=== PATIENT | male | born 1985 ===

== ENCOUNTER 2017-03-17 12:03 | Emergency (ER) | payer OTHER ==
[2017-03-17] MEDS ORDERED: Emtricitabine-Tenofovir 200 mg-300 mg Tab PO STA ×2 (12:23→12:45)
[2017-03-17] MEDS ORDERED: Tetanus/Diphtheria Toxoids 0.5 ml Syringe IM ONE ×2 (12:26→13:21)
--- NOTE | 2017-03-17 12:32 | C.PDOC ---
History Of Present Illness Patient presents to ED s/p needle stick to right palm after drawing blood from patient in our hospital. Patient is a optical manufacturing technician, states he removed the butterfly after the blood draw, but patient was moving around a lot and the needle stuck him in his right hand. To his knowledge patient has no infectious diseases, however patient's nurse contacted and aware of needlestick, and will be notifying PMD in order to do HIV/hepatitis testing. Patient's tetanus vaccination status unknown. Time Seen by Provider: 03/17/17 12:09 Chief Complaint (Nursing): Needle Stick History Per: Patient History/Exam Limitations: no limitations Onset/Duration Of Symptoms: Mins Current Symptoms Are (Timing): Still Present Severity: Mild Past Medical History Reviewed: Historical Data, Nursing Documentation, Vital Signs Vital Signs: Last Vital Signs Temp 97.5 F L 03/17/17 14:21 Pulse 75 03/17/17 14:21 Resp 18 03/17/17 14:21 BP 130/85 03/17/17 14:21 Pulse Ox 100 03/17/17 14:21 - Medical History PMH: Asthma Surgical History: No Surg Hx Family History: States: No Known Family Hx Review Of Systems Except As Marked, All Systems Reviewed And Found Negative. Constitutional: Negative for: Fever, Chills Cardiovascular: Negative for: Chest Pain Respiratory: Negative for: Shortness of Breath Skin: Positive for: Other (right hand needlestick). Negative for: Rash Neurological: Negative for: Weakness, Numbness Physical Exam - Physical Exam Appears: Well, Non-toxic, No Acute Distress Skin: Other (right hand palmar aspect - small puncture wound at area of distal 3rd metacarpal, no erythema/discharge/bleeding ) Oral Mucosa: Moist Cardiovascular: Rhythm Regular Respiratory: No Normal Breath Sounds, No Rhonchi, No Wheezing Extremity: Normal ROM, No Tenderness, Capillary Refill (< 2 sec all digits ), No Deformity, No Swelling Extremity: Bilateral: Normal Color And Temperature, Normal ROM Pulses: Left Radial: Normal, Right Radial: Normal Neurological/Psych: Oriented x3, Normal Sensation ED Course And Treatment - Laboratory Results Result Diagrams: 03/17/17 12:54 03/17/17 12:54 O2 Sat by Pulse Oximetry: 99 (RA) Pulse Ox Interpretation: Normal Progress Note: Source patient chart reviewed, no evidence of infectious disease. Blood work, UA for PEP protocol ordered. Patient given first dose of Truvada & Tivicay in the ED, and Rxs for pharmacy to dispense/instruct for two more tabs. Patient instructed to follow up with employee health and ID in 1-2 days. He understands he should return to ED if he has any concerning symptoms. Disposition Counseled Patient/Family Regarding: Studies Performed, Diagnosis, Need For Followup, Rx Given - Disposition Referrals: [facility] [Outside] [facility] [Outside] Meena Welsh MD [Staff Provider] - Disposition: HOME/ ROUTINE Disposition Time: 13:00 Condition: STABLE Additional Instructions: FOLLOW UP WITH EMPLOYEE HEALTH AND WITH INFECTIOUS DISEASE IN 1-2 DAYS USE MEDICATIONS INSTRUCTED RETURN TO ER IF YOU HAVE ANY CONCERNING SYMPTOMS Prescriptions: Dolutegravir Sodium [Tivicay] 50 mg PO DAILY #2 tab Emtricitabine/Tenofovir (Tdf) [Truvada 200 mg-300 mg Tablet] 1 each PO DAILY #2 tablet Ondansetron [Zofran Odt] 4 mg PO Q8 PRN #12 odt PRN Reason: Nausea/Vomiting Instructions: Needle Stick Injuries (ED) Forms: [employer] (Occitan) Print Language: [place] - Clinical Impression Clinical Impression: Needle stick injury
[2017-03-17] MEDS ORDERED: Emtricitabine-Tenofovir 200 mg-300 mg Tab PO NR (12:45)
[2017-03-17 13:03] LABS: BASO # 0.1 K/uL (0.0-0.2); BASO % 0.8 % (0.0-2.0); EOS # 0.2 K/uL (0.0-0.7); EOS % 3.3 % (0.0-4.0); HEMATOCRIT 45.3 % (35.0-51.0); LYMPH # 1.6 K/uL (1.0-4.3); LYMPH % 23.5 % (20.0-40.0); MEAN CELL VOLUME 82.7 fL (80.0-94.0); MEAN CORPUSCULAR HEMOGLOBIN 28.7 pg (27.0-31.0); MEAN CORPUSCULAR HGB CONC 34.7 g/dL (33.0-37.0); MEAN PLATELET VOLUME 9.2 fL (7.2-11.7); MONO # 0.4 K/uL (0.0-0.8); MONO % 6.5 % (0.0-10.0); RED CELL DISTRIBUTION WIDTH 13.1 % (11.5-14.5); WHITE BLOOD COUNT 6.8 K/uL (4.8-10.8)
[2017-03-17 13:06] LABS: RBC URINE < 1 /hpf (0-3); URINE BILIRUBIN NEGATIVE (NEGATIVE); URINE BLOOD NEGATIVE (NEGATIVE); URINE COLOR Yellow (YELLOW); URINE GLUCOSE (UA) NORMAL (Normal); URINE KETONE 1+ mg/dL (NEGATIVE); URINE LEUKOCYTE ESTERASE NEG Leu/uL (Negative); URINE PROTEIN NEGATIVE (NEGATIVE); URINE UROBILINOGEN NORMAL mg/dL (0.2-1.0); WBC URINE 1 /hpf (0-5)
[2017-03-17 13:48] LABS: CHLORIDE 98 mmol/L (98-107); POTASSIUM 3.7 mmol/L (3.6-5.2); SODIUM 136 mmol/L (132-148)
[2017-03-17 13:50] LABS: ALB/GLOB RATIO 1.3 (1.0-2.1); AMYLASE 76 U/L (30-110); BILIRUBIN,TOTAL 0.7 mg/dL (0.2-1.3); CARBON DIOXIDE 26 mmol/L (22-30); GFR AFRICAN-AMERICAN > 60; TOTAL PROTEIN 8.2 g/dL (6.3-8.3)
[2017-03-17 13:51] LABS: ALKALINE PHOSPHATASE 82 U/L (38-126); ALT/SGPT 49 U/L (21-72); AST/SGOT 35 U/L (17-59); BLOOD UREA NITROGEN 11 mg/dL (9-20); CALCIUM 9.6 mg/dl (8.6-10.4); GLUCOSE,RANDOM 82 mg/dL (75-110)
[2017-03-17 14:21] VITALS: BP 130/85; PULSE 75; RESP 18; TEMP 97.5
[2017-03-19 09:28] VITALS: O2SAT 99
== END 2017-03-17 14:22 | disposition home or self-care (01) ==
LOC: C.ER 12:03
DX: S61.431A Puncture wound without foreign body of right hand, initial encounter (principal); W46.0XXA Contact with hypodermic needle, initial encounter; Y93.89 Activity, other specified; Y92.239 Unspecified place in hospital as the place of occurrence of the external cause; Y99.0 Civilian activity done for income or pay

== ENCOUNTER 2018-03-28 07:10 | Day surgery (SDC) | payer OTHER ==
[2018-03-28] MEDS ORDERED: Propofol 10 mg/ml Inj (20 ML) ONE (08:43)
[2018-03-28] MEDS ORDERED: Lidocaine Hydrochloride 5 ML INJ ONE (08:43)
--- NOTE | 2018-03-28 08:48 | CP.SDSHP ---
Same Day Surgery H & P - History Proposed Procedure: EGD with biopsy Pre-Op Diagnosis: dyspepsia/abdominal pain - Previous Medical/Surgical History Pulmonary: Asthma Previous Surgical History: nansal fracture - Allergies Allergies: Allergies No Known Allergies Allergy (Verified 03/17/17 12:29) - Current Medications Current Medications: reviewed, per reconciliation - Physical Exam General Appearance: wdwn nad Vital Signs: Vital Signs 03/28/18 07:29 Temperature 97.5 F L Pulse Rate 80 Respiratory 20 Rate Blood Pressure 129/95 H O2 Sat by Pulse 99 Oximetry Mental Status: Alert & Oriented x3 Heart: WNL Lungs: WNL GI: WNL - {Optional Preform as Required} Abdomen: WNL - Impression Impression: abdominal pain Pt. Evaluated Today:Candidate for Anesthesia & Procedure: Yes - Date & Time Date: 03/28/18 Time: 08:48 Short Stay Discharge - Short Stay Discharge Admitting Diagnosis/Reason for Visit: DYSPEPSIA Disposition: HOME/ ROUTINE
[2018-03-28 09:14] VITALS: TEMP 97.9
[2018-03-28 10:56] VITALS: O2SAT 100
[2018-03-28 11:09] VITALS: BP 118/77; PULSE 68; RESP 12
== END 2018-03-28 10:30 | disposition home or self-care (01) ==
LOC: C.ENDO 07:10
PROVIDERS: ATTEND Internal Medicine Gastroenterology
DX: K31.7 Polyp of stomach and duodenum (principal); J45.909 Unspecified asthma, uncomplicated; K25.9 Gastric ulcer, unspecified as acute or chronic, without hemorrhage or perforation; R10.13 Epigastric pain
CPT/HCPCS: 43239; 88305; 88342; J2704

== ENCOUNTER 2018-08-19 18:30 | Emergency (ER) | payer OTHER ==
[2018-08-19 18:33] VITALS: BMI 25.4
[2018-08-19 18:37] VITALS: O2SAT 97
[2018-08-19] MEDS ORDERED: Sodium Chloride 0.9% 1,000 ML IV ONE (18:54)
[2018-08-19] MEDS ORDERED: Sodium Chloride 0.9% 1,000 ML ONE (19:16)
[2018-08-19 19:39] LABS: BASO # 0.1 K/uL (0.0-0.2); BASO % 0.4 % (0.0-2.0); EOS # 0.3 K/uL (0.0-0.7); EOS % 1.9 % (0.0-4.0); HEMOGLOBIN 16.5 g/dL (12.0-18.0); LYMPH # 1.3 K/uL (1.0-4.3); MEAN CELL VOLUME 82.1 fL (80.0-94.0); MEAN CORPUSCULAR HEMOGLOBIN 27.7 pg (27.0-31.0); MEAN CORPUSCULAR HGB CONC 33.7 g/dL (33.0-37.0); MEAN PLATELET VOLUME 9.2 fL (7.2-11.7); MONO # 0.7 K/uL (0.0-0.8); MONO % 4.2 % (0.0-10.0); NEUT # 13.6 K/uL (1.8-7.0); NEUT % 85.5 % (50.0-75.0); PLATELET COUNT 258 K/uL (130-400); RBC 5.96 Mil/uL (4.40-5.90); WHITE BLOOD COUNT 15.9 K/uL (4.8-10.8)
[2018-08-19 19:52] LABS: ALB/GLOB RATIO 1.6 (1.0-2.1); ALBUMIN 4.9 g/dL (3.5-5.0); ALT/SGPT 27 U/L (21-72); AST/SGOT 25 U/L (17-59); BLOOD UREA NITROGEN 13 mg/dL (9-20); CALCIUM 9.6 mg/dl (8.6-10.4); GFR NON-AFRICAN AMERICAN > 60; LIPASE 196 U/L (23-300)
[2018-08-19] MEDS ORDERED: Iodixanol 320 mg/ml 150 ml Bottle IV ONE (20:01)
[2018-08-19 20:37] LABS: LYMPHOCYTE 10 % (20-40); MONOCYTE 2 % (0-10); NEUTROPHIL 88 % (50-75); TOTAL CELLS COUNTED 100
[2018-08-19 20:38] LABS: PLATELET ESTIMATE NORMAL (NORMAL)
--- NOTE | 2018-08-19 21:29 | C.PDOC ---
History Of Present Illness 32 year old male presents to the ED c/o abdominal pain associated with nausea, vomit and diarrhea since yesterday. Patient denies fever, chills, CP, SOB, palpitations, recent travel, sick contacts. Time Seen by Provider: 08/19/18 18:49 Chief Complaint (Nursing): Abdominal Pain History Per: Patient History/Exam Limitations: no limitations Onset/Duration Of Symptoms: Days (1) Current Symptoms Are (Timing): Still Present Location Of Pain/Discomfort: Diffuse Quality Of Discomfort: "Pain" Associated Symptoms: Nausea, Vomiting, Diarrhea. denies: Urinary Symptoms Recent travel outside of the [place]: No Additional History Per: Patient Past Medical History Reviewed: Historical Data, Nursing Documentation, Vital Signs Vital Signs: Last Vital Signs Temp 98.7 F 08/19/18 18:33 Pulse 99 H 08/19/18 18:33 Resp 22 08/19/18 18:33 BP 129/89 08/19/18 18:33 Pulse Ox 97 08/19/18 18:33 - Medical History PMH: Asthma Denies: Chronic Kidney Disease Surgical History: No Surg Hx Family History: States: Unknown Family Hx - Social History Hx Alcohol Use: Yes Hx Substance Use: No - Immunization History Hx Tetanus Toxoid Vaccination: No Hx Influenza Vaccination: No Hx Pneumococcal Vaccination: No Review Of Systems Constitutional: Negative for: Fever, Chills Cardiovascular: Negative for: Chest Pain, Palpitations Respiratory: Negative for: Shortness of Breath Gastrointestinal: Positive for: Nausea, Vomiting, Abdominal Pain, Diarrhea Genitourinary: Negative for: Dysuria, Hematuria Skin: Negative for: Rash Neurological: Negative for: Weakness, Numbness Physical Exam - Physical Exam Appears: Non-toxic, No Acute Distress Skin: Normal Color, Warm, Dry Head: Atraumatic, Normacephalic Eye(s): bilateral: Normal Inspection Oral Mucosa: Moist Neck: Normal ROM, Supple Chest: Symmetrical Cardiovascular: Rhythm Regular Respiratory: Normal Breath Sounds, No Rales, No Rhonchi, No Wheezing Gastrointestinal/Abdominal: Soft, Tenderness, No Guarding, No Rebound Back: No CVA Tenderness Extremity: Normal ROM, No Tenderness, No Swelling Neurological/Psych: Oriented x3, Normal Speech, Normal Cognition Gait: Steady ED Course And Treatment - Laboratory Results Result Diagrams: 08/19/18 19:35 08/19/18 19:35 Lab Results: Total Bilirubin 0.4 mg/dL (0.2-1.3) 08/19/18 19:35 AST 25 U/L (17-59) 08/19/18 19:35 ALT 27 U/L (21-72) 08/19/18 19:35 Alkaline Phosphatase 104 U/L (38-126) 08/19/18 19:35 Total Protein 8.0 g/dL (6.3-8.3) 08/19/18 19:35 Albumin 4.9 g/dL (3.5-5.0) 08/19/18 19:35 Globulin 3.1 gm/dL (2.2-3.9) 08/19/18 19:35 Albumin/Globulin Ratio 1.6 (1.0-2.1) 08/19/18 19:35 Lipase 196 U/L (23-300) 08/19/18 19:35 O2 Sat by Pulse Oximetry: 97 (On RA) Pulse Ox Interpretation: Normal - CT Scan/US Ct abd/pelvis Other Rad Studies (CT/US): Read By Radiologist, Radiology Report Reviewed CT/US Interpretation: EXAM: CT Abdomen and Pelvis with IV contrast. CLINICAL HISTORY: Patient with mid gastric pain with n/v/d today Hx of gastritis. TECHNIQUE: Axial computed tomography images of the abdomen and pelvis with intravenous contrast. 0.00 mGy-cm. CONTRAST: With; VISI 320 100MLS. COMPAR MARTA: None provided. FINDINGS: LUNG BASES: The lung bases appear clear. No pleural effusions are seen. LIVER: Hepatomegaly. The liver measured 18.0 cm in the midclavicular line. GALLBLADDER AND BILE DUCTS: The gallbladder appears within normal limits. No radioopaque gallstones are seen. No biliary ductal dilatation is evident. PANCREAS: Unremarkable. SPLEEN: Unremarkable. ADRENAL GLANDS: Unremarkable. KIDNEYS, URETERS, AND BLADDER: The kidneys appear within normal limits. There is no hydronephrosis or hydroureter. No urinary calculi are seen. The urinary bladder appeared normal in size and configuration. STOMACH AND BOWEL: Mucosal wall thickening is seen within the lower esophagus at the esophagogastric junction, stomach, duodenum, small intestinal tract with fluid in the lumen thought compatible with reflux esophagitis and diffuse gastroenteritis. Additionally, liquid stool is noted throughout the colon and rectum suggesting colitis and proctitis. Infectious or inflammatory etiologies are thought most likely. No evidence of bowel obstruction. APPENDIX: No evidence of acute appendicitis on CT examination. PERITONEUM: No free fluid. No free air. LYMPH NODES: No lymphadenopathy is evident. REPRODUCTIVE: Unremarkable as visualized. VASCULATURE: No evidence of abdominal aortic aneurysm. BONES: No aggressive appearing osseous lesion. No acute osseous pathology evident. IMPRESSION: 1. Evidence of reflux esophagitis. 2. Evidence of gastritis and diffuse enterocolitis. 3. Hepatomegaly. . Electronically signed on Aug 19, 2018 9:25:24 PM EDT by: Rashaun Trejo M.D., [place] Certified By ABR & CBCCT. Fellowship Trained MRI and CT Specialist Medical Decision Making Medical Decision Making: Assessment: Abdominal pain Plan: * CT abd/pelvis * Labs * Pepcid 20 mg IVP * IV fluids * Toradol 30 mg IVP * Zofran 4 mg IVP Disposition Counseled Patient/Family Regarding: Studies Performed, Diagnosis, Need For Followup, Rx Given - Disposition Disposition: HOME/ ROUTINE Disposition Time: 21:31 Condition: STABLE Additional Instructions: follow up with your doctor within 2 days call to make an appointment take medications as prescribed return to ER if symptoms worsens or progress Prescriptions: Famotidine [Pepcid] 20 mg PO BID #20 tab Ondansetron ODT [Zofran ODT] 4 mg PO TID PRN #12 odt PRN Reason: Nausea/Vomiting Instructions: Acute Abdomen (Belly Pain), Adult (DC) Forms: General Discharge Instructions, [facility] (Hebrew), School Excuse, Work Excuse - Clinical Impression Clinical Impression: Abdominal pain - Scribe Statement The provider has reviewed the documentation as recorded by the Scribkathleen Alexander All medical record entries made by the Zacharyibkathleen were at my direction and perso jolanta dictated by me. I have reviewed the chart and agree that the record accurately reflects my personal performance of the history, physical exam, medical decision making, and the department course for this patient. I have also personally directed, reviewed, and agree with the discharge instructions and disposition.
[2018-08-19 21:51] VITALS: BP 122/78; PULSE 96; RESP 18; TEMP 98.6
--- NOTE | 2018-08-20 08:36 | CT ---
Date of service: 08/19/2018 PROCEDURE: CT Abdomen and Pelvis with intravenous contrast HISTORY: Abdominal pain COMPARISON: None. TECHNIQUE: Multiple contiguous axial images were performed through the abdomen and pelvis with the use of intravenous contrast. Subsequently, sagittal and coronal reformatted images were obtained. Contrast dose: 100 cc of Visipaque 320 intravenous contrast. Radiation dose: Total exam DLP = 283.59 mGy-cm. This CT exam was performed using one or more of the following dose reduction techniques: Automated exposure control, adjustment of the mA and/or kV according to patient size, and/or use of iterative reconstruction technique. FINDINGS: LOWER THORAX: Scattered atelectasis at the lung bases. LIVER: Unremarkable. No gross lesion or ductal dilatation. GALLBLADDER AND BILE DUCTS: Unremarkable. PANCREAS: Unremarkable. No gross lesion or ductal dilatation. SPLEEN: Unremarkable. ADRENALS: Unremarkable. No mass. KIDNEYS AND URETERS: Unremarkable. No hydronephrosis. No solid mass. Question 2 millimeter nonobstructive calculus in the midpole of the right kidney. No hydronephrosis. VASCULATURE: Unremarkable. No aortic aneurysm. No aortic atherosclerotic calcification or mural plaque present. BOWEL: Mild thickening of the distal esophagus and stomach which may represent an esophagitis/gastritis. Clinical correlation. Fluid-filled distended loops of small bowel seen throughout the abdomen which may represent enteritis. Fluid filled colon which may represent diarrheal illness. Clinical correlation. APPENDIX: Unremarkable. Normal appendix. PERITONEUM: Unremarkable. No free fluid. No free air. LYMPH NODES: Few shotty para-aortic and inguinal lymph nodes. BLADDER: Unremarkable. REPRODUCTIVE: Unremarkable. BONES: No acute fracture. OTHER FINDINGS: None. IMPRESSION: 1. Mild thickening of the distal esophagus and stomach which may represent an esophagitis/gastritis. Clinical correlation. 2. Fluid-filled distended loops of small bowel seen throughout the abdomen which may represent an enteritis. 3. Fluid filled colon which may represent diarrheal illness. Clinical correlation. 4. Question 2 millimeter nonobstructive calculus in the midpole of the right kidney. A preliminary report was generated at 9:25 p.m. on 08/19/[address] Rashaun Trejo from [employer].
== END 2018-08-19 21:49 | disposition home or self-care (01) ==
LOC: C.ER 18:30
DX: R10.9 Unspecified abdominal pain (principal)
CPT/HCPCS: 74177; 80053; 83690; 85025; 96361; 96374; 96375; 99284; J1885; J2405; J7030; Q9967

== ENCOUNTER 2018-08-22 06:34 | Day surgery (SDC) | payer OTHER ==
[2018-08-22] MEDS ORDERED: Propofol 10 mg/ml Inj (20 ML) ONE ×2 (09:00→09:11)
--- NOTE | 2018-08-22 09:01 | CP.SDSHP ---
Same Day Surgery H & P - History Proposed Procedure: EGD Pre-Op Diagnosis: Gastric ulcer - Previous Medical/Surgical History Pulmonary: Asthma Previous Surgical History: nasal - Allergies Allergies: Allergies No Known Allergies Allergy (Verified 08/19/18 18:33) - Current Medications Current Medications: reviewed, per reconciliation - Physical Exam General Appearance: wdwn Vital Signs: Vital Signs 08/22/18 07:07 Temperature 97 F L Pulse Rate 73 Respiratory 19 Rate Blood Pressure 116/78 O2 Sat by Pulse 98 Oximetry Mental Status: Alert & Oriented x3 Heart: WNL Lungs: WNL GI: WNL - {Optional Preform as Required} Abdomen: WNL - Impression Impression: gastric ulcer Pt. Evaluated Today:Candidate for Anesthesia & Procedure: Yes - Date & Time Date: 08/22/18 Time: 09:00 Short Stay Discharge - Short Stay Discharge Admitting Diagnosis/Reason for Visit: GASTRIC POLYP Disposition: HOME/ ROUTINE
[2018-08-22 09:27] VITALS: TEMP 97.2
[2018-08-22 09:38] VITALS: O2SAT 100
[2018-08-22 10:31] VITALS: BP 136/90; PULSE 75; RESP 18
== END 2018-08-22 10:30 | disposition home or self-care (01) ==
LOC: C.ENDO 06:34
PROVIDERS: ATTEND Internal Medicine Gastroenterology
DX: K31.7 Polyp of stomach and duodenum (principal); K25.9 Gastric ulcer, unspecified as acute or chronic, without hemorrhage or perforation
CPT/HCPCS: 43239; 88305; 88342; J2001; J2704